=== PATIENT | male | born 1940 | race Caucasian/White ===

== ENCOUNTER → 2024-09-24 | Outpatient (CLI) | payer MEDICARE, OTHER ==
[2024-09-26 14:08] LABS: PROTEIN CREATININE RATIO 360 mg/g creat (25-148); UPEP CREATININE 25 mg/dL (20-320); UPEP TOTAL PROTEIN 9 mg/dL (5-25)
[2024-09-28 15:57] LABS: FREE KAPPA LIGHT CHAINS SERUM 56.2 mg/L (3.3-19.4); FREE LAMBDA LIGHT CHAINS SERUM 23.3 mg/L (5.7-26.3); KAPPA/LAMBDA RATIO SERUM 2.41 (0.26-1.65)
[2024-09-29 07:22] LABS: ALBUMIN SPEP 4.2 g/dL (3.8-4.8); ALPHA-1-GLOBULINS SO 0.3 g/dL (0.2-0.3); ALPHA-2-GLOBULINS SO 0.8 g/dL (0.5-0.9); BETA 2 GLOBULIN 0.3 g/dL (0.2-0.5); BETA-GLOBULIN SO 0.4 g/dL (0.4-0.6); SPEP ABN PROTEIN BAND 1 0.5 g/dL (NONE DETECTED)
[2024-09-29 12:16] LABS: UPEP ALBUMIN 41 %; URINE ALPHA 1 GLOBULIN 9 %; URINE ALPHA 2 GLOBULIN 10 %; URINE BETA GLOBULIN 15 %; URINE GAMMA GLOBULIN 25 %
[2024-09-30 07:17] LABS: FREE KAPPA LIGHT CHAINS URINE 82.15 mg/L (<=32.90); FREE LAMBDA LIGHT CHAINS URINE 5.82 mg/L (<=3.79); KAPPA/LAMBDA RATIO URINE 14.12 (<=8.69)
== END ==
LOC: M PLALAB 12:55
PROVIDERS: ATTEND Psychiatry & Neurology Neurology
DX: R56.9 Unspecified convulsions (principal)